=== PATIENT | female | born 1985 | race Caucasian/White ===

== ENCOUNTER 2016-06-17 22:53 | Emergency (ER) | payer MEDICAID, OTHER ==
[~2016-06-17] VITALS: Ht 165.1 cm; Wt 72.7 kg
[2016-06-17 22:56] VITALS: Ht 165.1 cm; Wt 72.7 kg
[2016-06-18] MEDS ORDERED: OSLT75C PO (01:40)
[2016-06-18] MEDS ORDERED: CETI10CA PO (01:40)
[2016-06-18] MEDS ORDERED: ALBU8.5H3 INH (01:40)
[2016-06-18] MEDS ORDERED: GUAI120S26 PO (01:40)
[2016-06-18] MEDS ORDERED: IBUP-1542 PO (01:40)
--- NOTE | 2016-06-18 01:53 | ERD ---
ER Documentation Chief Complaint Date/Time DATE: 06/18/16 TIME: 01:48 Chief Complaint FEVER AND BODY ACHES X 2 DAYS HPI 31-year-old female presents here in emergency department for complaints of cough , runny nose, nasal congestion, bodyaches and fever for 2 days. Patient has been having on and off wheezing. Patient does not have shortness of breath or wheezing at this time. Patient denies any sore throat or ear pain. Patient denies any sick contacts. Patient takes NyQuil at home to help with symptoms and albuterol with mild relief. ROS All systems reviewed and are negative except as per history of present illness. Medications Home Meds Active Scripts Albuterol Sulfate* (Proair HFA*) 8.5 Gm Hfa.aer.ad, 2 PUFF INH Q4H Y for WHEEZING AND SOB, #1 INHALER Prov:CHRISTIANO GIRARD NP 06/18/16 Cetirizine Hcl* (Zyrtec*) 10 Mg Capsule, 10 MG PO DAILY, #30 TAB.CHEW Prov:CHRISTIANO GIRARD NP 06/18/16 Tedueahbxgu-U-Vkaosknxxf Hb* (Guaifenesin* DM Syrup) 120 Ml Syrup, 10 ML PO Q4H Y for COUGH, #120 ML Prov:CHRISTIANO GIRARD NP 06/18/16 Ibuprofen* (Motrin*) 600 Mg Tab, 600 MG PO Q6H Y for PAIN AND OR ELEVATED TEMP, #30 TAB Prov:CHRISTIANO GIRARD NP 06/18/16 Oseltamivir Phosphate* (Tamiflu*) 75 Mg Capsule, 75 MG PO BID for 5 Days, CAP Prov:CHRISTIANO GIRARD NP 06/18/16 Allergies Allergies: Coded Allergies: No Known Allergy (Unverified , 12/15/13) PMhx/Soc Medical and Surgical Hx: pt denies Medical Hx, pt denies Surgical Hx FmHx Family History: No coronary disease, No diabetes, No other Physical Exam Vitals Vital Signs Date Time Temp Pulse Resp B/P Pulse Ox O2 Delivery O2 Flow Rate FiO2 06/18/16 02:35 100.1 06/17/16 22:56 102.3 115 20 149/110 98 Physical Exam GENERAL: The patient is well developed and appropriate for usual state of health, in no apparent distress. HEENT: Atraumatic. Ears: Normal tympanic membrane, no erythema or bulging. No ear canal swelling. No ear discharge. Nose: Erythematous nasal turbinates with clear nasal disc. Throat: oropharynx erythematous with postnasal drip. No tonsillar swelling or tonsillar exudates. No lymphadenopathy. CHEST: Clear to auscultation bilaterally. There are no rales, wheezes or rhonchi. HEART: Regular rate and rhythm. No murmurs, clicks, rubs or gallops. No S3 or S4. ABDOMEN: Soft, nontender and nondistended. Good bowel sounds. No rebound or guarding. No gross peritonitis. No gross organomegaly or masses. No Tran sign or McBurney point tenderness. BACK: No midline or flank tenderness. EXTREMITIES: Equal pulses bilaterally. There is no peripheral clubbing, cyanosis or edema. No focal swelling or erythema. Full range of motion. Grossly neurovascularly intact. NEURO: Alert and oriented. Cranial nerves 2-12 intact. Motor strength in all 4 extremities with 5/5 strength. Sensation grossly intact. Normal speech and gait. SKIN: There is no apparent rash or petechia. The skin is warm and dry. HEMATOLOGIC AND LYMPHATIC: There is no evidence of excessive bruising or lymphedema. No gross cervical, axillary, or inguinal lymphadenopathy. Results 24 hrs Current Medications Medications (Trade) Dose Ordered Sig/Annita Route PRN Reason Start Time Stop Time Status Last Admin Dose Admin Acetaminophen (Tylenol Tab) 650 mg ONCE ONCE PO 06/18/16 02:00 06/18/16 02:01 DC 06/18/16 02:09 Ibuprofen (Motrin) 600 mg ONCE ONCE PO 06/18/16 02:00 06/18/16 02:01 DC 06/18/16 02:09 Patient was given medicines for fever control here in the emergency department. After treatment, patient temperature improved and lower. Patient appears well and is hemodynamically stable. Procedures/MDM Medical Decision Making: Patient symptoms are most likely consistent with acute bronchitis, which viral in origin, high suspicion for influenza. There is low suspicion for Pneumonia at this time since patients lungs sounds are clear, patient O2 saturation is normal and patient doesnt show any respiratory distress. Radiology exam is not indicated at this time. There is low suspicion for other cardiopulmonary emergencies at this time such as CHF, Pulmonary Embolism, Pneumothorax, or any other cardiopulmonary emergencies at this time. There is low suspicion for sepsis. Patient appears well and is hemodynamically stable. Fever is controlled with medicines. Disposition: Home. Condition: Stable Prescriptions: Zyrtec, ibuprofen, guaifenesin DM albuterol Instructions: Patient is advised to take medications as prescribed. Patient is advised to rest. Patient advised to increase fluid intake, do humidifier at home and if possible, do salt water gargles. Patient is advised that if symptoms are worse, shortness of breath, uncontrolled fever, stridor, vomiting, worst signs and symptoms to return to emergency department immediately. Otherwise, patient is advised to follow up with primary doctor in 5-7 days. Departure Diagnosis: Primary Impression: Acute bronchitis Bronchitis organism: unspecified organism Qualified Code: J20.9 - Acute bronchitis, unspecified organism Condition: Stable Patient Instructions: Bronchitis With Wheezing (Adult), Influenza (Adult) CHRISTIANO GIRARD NP Jun 18, 2016 01:53
[2016-06-18] MEDS ORDERED: ACETAMINOPHEN 325 MG TAB PO ONE (02:00)
[2016-06-18] MEDS ORDERED: IBUPROFEN 600 MG TAB PO ONE (02:00)
[2016-06-18 02:35] VITALS: TEMP 100.1
== END 2016-06-18 02:35 | disposition home or self-care (01) ==
LOC: FTE 22:53
DX: J20.9 Acute bronchitis, unspecified (principal); J45.909 Unspecified asthma, uncomplicated
CPT/HCPCS: Z7502; Z7610; 99284